=== PATIENT | male | born 1970 | race Caucasian/White ===

== ENCOUNTER 2019-08-15 03:35 | Emergency (ER) | payer MEDICAID, MEDICARE, OTHER ==
--- NOTE | 2019-08-15 03:58 | ED.PDOC ---
History of Present Illness - General Time Seen by Provider: 08/15/19 03:41 - History of Present Illness Initial Comments: 49 yo M PMH recent code x 8 sent from vent facility after trach placed at [facility] in June for malfuntioning tracheostomy bulb. Pt. in NAD limited participation in ROS. Denies fever chills nausea vomiting diarrhea chest pain sob no diaphoresis. No changes in bowel or bladder. Offers no complaints today. Review of Systems - Review of Systems Constitutional: States: see HPI EENTM: States: see HPI Respiratory: States: see HPI Gastrointestinal/Abdominal: States: see HPI Genitourinary: States: see HPI Musculoskeletal: States: see HPI Skin: States: see HPI Neurological: States: see HPI Endocrine: States: see HPI Hematologic/Lymphatic: States: see HPI All other Systems: No Change from Baseline Family Medical History - Family History Mother Family History: Unknown Living Status: Unknown Physical Exam - Physical Exam General Appearance: No apparent distress Eye Exam: bilateral normal ENT Exam: other - Tracheostomy in place still appears recently done Neck: supple Respiratory: decreased breath sounds, other - limited exam Cardiovascular/Chest: regular rate, rhythm Gastrointestinal/Abdominal: non tender Extremity: normal range of motion Neurologic: no motor/sensory deficits Skin Exam: normal color Progress - Progress Progress: 08/15/19 04:00 A/P-Tracheostomy Equipment Malfunction 1.MDM-tracheostomy site appears too new for safe manipulation, concern exists for loosing tract and compromising airway. Will transfer to [facility] where tracheostomy was placed for safe intervention/manipulation of equipment. Transfer Departure - Departure Clinical Impression: Tracheostomy complication Qualifiers: Tracheostomy complication: unspecified Qualified Code(s): J95.00 - Unspecified tracheostomy complication Time of Disposition: 04:21 Disposition: Transfer to Hospital Condition: Good Instructions: Tracheotomy (DC), How to Care for a Tracheostomy
[2019-08-15 04:13] VITALS: TEMP 98.5; O2SAT 100
[2019-08-15 06:42] VITALS: BP 146/79
== END 2019-08-15 06:25 | disposition short-term general hospital (02) ==
LOC: ER 03:35
DX: J95.00 Unspecified tracheostomy complication (principal)
CPT/HCPCS: 94002; J2060

== ENCOUNTER 2019-08-20 01:47 | Emergency (ER) | payer MEDICAID, MEDICARE, OTHER ==
--- NOTE | 2019-08-20 02:36 | ED.PDOC ---
History of Present Illness - General Chief Complaint: General Stated Complaint: redness around trach site Time Seen by Provider: 08/20/19 01:49 Source: RN notes reviewed, Vital Signs reviewed, EMS notes reviewed, EMS, long term records Exam Limitations: physical impairment, other - Pt nonerbal - History of Present Illness Initial Comments: Pt is a 49 yo male with chronic respiratory failure with trach, ventilator dependant, who was sent [place]. Per [place] staff, pt has been pulling at trach, G tube and PICC line and sent to make sure none are dislodged. [place] staff also repo rts that there is erythematous area around skin of trach site. States he was sent here last week for trach problem and was exchanged in ED. Pt unable to given further history. Allergies/Adverse Reactions: Allergies NO KNOWN ALLERGY Allergy (Verified 08/20/19 02:20) Home Medications: Ambulatory Orders Cefepime HCl [Cefepime] 2 gm IV 08/20/19 Magnesium Oxide [Hm Magnesium] 400 mg PO 08/20/19 RX: Doxazosin Mesylate 4 mg PO 08/20/19 RX: Metoprolol Tartrate 50 mg PO 08/20/19 RX: Pravastatin Sodium 80 mg PO 08/20/19 RX: Triamcinolone 0.1% Oint [Kenalog 0.1% Ointment] 1 applic TOP TID #1 tube 08/20/19 Review of Systems - Review of Systems Unable to Obtain Due To: other - Pt nonverbal. Unable to obtain Past Medical History (General) - Patient Medical History Hx Seizures: Yes Hx Asthma: No Hx Cardiac Disorders: Yes Hx Congestive Heart Failure: Yes Hx Hypertension: Yes Hx Diabetes: Yes - NIDDM Hx Gastroesophageal Reflux: No Family Medical History - Family History Mother Family History: Unknown Living Status: Unknown Physical Exam - Physical Exam General Appearance: Alert, No apparent distress, Obese, Other - Nonverbal Eye Exam: bilateral normal - PERRL Ears, Nose, Throat: normal pharynx Neck: non-tender, supple, other - Tracheostomy in place. There is mild dry, erythematous skin around trach Respiratory: chest non-tender, lungs clear, normal breath sounds, no respiratory distress, no accessory muscle use, other Cardiovascular/Chest: normal peripheral pulses, regular rate, rhythm, no murmur Gastrointestinal/Abdominal: normal bowel sounds, non tender, soft, other - G tube in place in epigastric area Back Exam: normal inspection, no CVA tenderness, no vertebral tenderness Extremity: non-tender, other - No deformity. Peripheral line in place and dressed with Kerlex to right upper arm Neurologic: alert, other - Tracks with eyes. Makes purposeful movements to pull at trach with BUE. Nonverbal Progress - Progress Progress: 08/20/19 02:40 Galen Patel #[id number] 08/20/19 02:54 Pt sent from [place] to evaluate trach, PICC and G tube postion. CXR and Abd with gastrograffin performed. Trach in place, PICC terminates in right axilla and flushes easily, and xray for G tube confirmation shows contrast in good position. Pt does continue to pull at trach and will need frequent re education and constant monitoring. There is very mild erythema to skin around trach site. Will treat with topical steroid and f/u with PCP in 1-2 days for recheck. SRP given. 08/20/19 02:55 Barrier cream applied to skin surrounding trach after area cleansed and dried. 08/20/19 04:07 - EKG/XRAY/CT XRAY: abdomen Xray Comments: with gastrograffing shows G tube in good position Departure - Departure Clinical Impression: Tracheostomy complication, unspecified, Chronic respiratory failure Time of Disposition: 02:59 Disposition: Discharge to SNF Condition: Fair Departure Forms: ED Discharge - Pt. Copy, Patient Portal Self Enrollment Instructions: How to Care for a Tracheostomy, Tracheotomy (DC) Referrals: JUAN MEZA [Primary Care Provider] - 1-2 Days Prescriptions: RX: Triamcinolone 0.1% Oint [Kenalog 0.1% Ointment] 1 applic TOP TID #1 tube Home Medications: Ambulatory Orders Cefepime HCl [Cefepime] 2 gm IV 08/20/19 Magnesium Oxide [Hm Magnesium] 400 mg PO 08/20/19 RX: Doxazosin Mesylate 4 mg PO 08/20/19 RX: Metoprolol Tartrate 50 mg PO 08/20/19 RX: Pravastatin Sodium 80 mg PO 08/20/19 RX: Triamcinolone 0.1% Oint [Kenalog 0.1% Ointment] 1 applic TOP TID #1 tube 08/20/19
--- NOTE | 2019-08-20 02:49 | RAD ---
CLINICAL HISTORY: G tube confirmation COMPARISON: None. TECHNIQUE: XR ABDOMEN 1 VIEW (KUB) 08/20/2019 1:53 AM CDT FINDINGS: Bowel gas pattern is nonspecific. There are no abnormal radiopaque foreign bodies or abnormal calcifications. Osseous structures are grossly unremarkable. There is intraluminal contrast within the stomach following NG tube injection. There is trace amount of contrast into duodenum. IMPRESSION: Intraluminal position of G-tube. Electronically signed by: Raffaele Walters MD 08/20/2019 2:47 AM CDT
--- NOTE | 2019-08-20 02:50 | RAD ---
EXAM: AP CHEST RADIOGRAPH CLINICAL INDICATION: Evaluate lines and tubes. COMPARISON: No comparisons are available. FINDINGS: Patient has been intubated with endotracheal tube tip 5.5 cm above the gonzalo. Right PICC central line tip is in the right axilla. Panchamber cardiac enlargement. Suspect mild pulmonary congestion. No pleural effusions. No pneumothorax, pneumomediastinum or free peritoneal gas. No hilar or mediastinal lymphadenopathy. No mediastinal widening. Bones are intact on this single view. IMPRESSION: 1. NG tube tip is 5.5 cm above the gonzalo. 2. Right PICC central line tip is in the right axilla. 3. Panchamber cardiac enlargement without mild pulmonary congestion. No focal pneumonia or pneumothorax on this single view. Electronically signed by: Jack Obregon MD 08/20/2019 2:48 AM CDT
[2019-08-20 03:18] VITALS: BP 145/83; TEMP 98.4; O2SAT 99
== END 2019-08-20 03:26 ==
LOC: ER 01:47
DX: J95.00 Unspecified tracheostomy complication (principal); E66.9 Obesity, unspecified; R56.9 Unspecified convulsions; I51.9 Heart disease, unspecified; I50.9 Heart failure, unspecified; I11.0 Hypertensive heart disease with heart failure; E11.9 Type 2 diabetes mellitus without complications; Y83.9 Surgical procedure, unspecified as the cause of abnormal reaction of the patient, or of later complication, without mention of misadventure at the time of the procedure; Z99.11 Dependence on respirator [ventilator] status; Z79.899 Other long term (current) drug therapy

== ENCOUNTER 2019-09-20 06:23 | Emergency (ER) | payer OTHER ==
[2019-09-20] MEDS ORDERED: IPRATROPIUM/ALBUTEROL 3 ML VIAL NEB ONE (06:29)
--- NOTE | 2019-09-20 06:53 | RAD ---
EXAM: Single view chest. INDICATION: Bradycardia. COMPARISON: Chest x-ray: 08/20/2019. FINDINGS: Cardiac silhouette: Enlarged Kiarra: Unremarkable. Lobar consolidation: None. Pleural effusion: None. Pneumothorax: None. Other: Tracheostomy tube is in satisfactory position Bones: Unremarkable. Other: None. IMPRESSION: 1. No acute cardiopulmonary process. Electronically signed by: Sd Ramos MD 09/20/2019 6:51 AM CDT
--- NOTE | 2019-09-20 06:59 | ED.PDOC ---
History of Present Illness - General Source: patient Exam Limitations: no limitations - History of Present Illness Initial Comments: The patient is a 49-year-old male being brought in by EMS from the long-term care facility. The patient was found to have a low heart rate this morning in the low 30s. He seemed a little more confused than normal. Blood pressures however have been in the 1 teens to 140s. On the systolic end. No obvious fever. The patient does look pale. The patient had been on a trach collar overnight. The patient has had apparently 4 medications DC'd in the last couple of days. We are unsure what this is in the overnight nurse was unable to give us what that is. We are going to contact them back here in an hour to try and figure out what those are.the patient did have a documented heart rate 62 yesterday evening. Timing/Duration: unsure Severity: severe Improving Factors: nothing Worsening Factors: nothing <Kris Damian - Last Filed: 09/20/19 07:20> <Nas Silva - Last Filed: 09/20/19 07:54> - General Chief Complaint: Cardiovascular Problem Stated Complaint: low heart rate Time Seen by Provider: 09/20/19 06:29 - History of Present Illness Allergies/Adverse Reactions: Allergies NO KNOWN ALLERGY Allergy (Verified 08/20/19 02:20) Home Medications: Ambulatory Orders Cefepime HCl [Cefepime] 2 gm IV 08/20/19 Doxazosin Mesylate 4 mg PO 08/20/19 Magnesium Oxide [Hm Magnesium] 400 mg PO 08/20/19 Metoprolol Tartrate 50 mg PO 08/20/19 Pravastatin Sodium 80 mg PO 08/20/19 Triamcinolone 0.1% Oint [Kenalog 0.1% Ointment] 1 applic TOP TID #1 tube 08/20/19 Review of Systems - Review of Systems Review of Systems: 09/20/19 06:59 the patient does seem a little bit confused. He is able to nod yes and no to most questions appropriately. Review of systems is therefore unreliable in this patient. Constitutional: States: malaise EENTM: States: no symptoms reported Respiratory: States: short of breath - mild Cardiology: States: no symptoms reported Gastrointestinal/Abdominal: States: no symptoms reported Genitourinary: States: no symptoms reported Musculoskeletal: States: no symptoms reported Skin: States: no symptoms reported Neurological: States: see HPI Endocrine: States: no symptoms reported All other Systems: No Change from Baseline <RickieKris L - Last Filed: 09/20/19 07:20> Past Medical History (General) - Patient Medical History Hx Seizures: Yes Hx Asthma: No Hx of COPD: Yes - vent dependent Hx Cardiac Disorders: Yes Hx Congestive Heart Failure: Yes Hx Hypertension: Yes Hx Diabetes: Yes - NIDDM Hx Gastroesophageal Reflux: No Hx Renal Disease: Yes Surgical History: other - Vaccination History Hx Tetanus, Diphtheria Vaccination: No Hx Influenza Vaccination: No Hx Pneumococcal Vaccination: No Immunizations Up to Date: No - Activities of Daily Living [facility]isted [facility] (if applicable[facility]:: [facility] <Kris Damian - Last Filed: 09/20/19 07:20> Family Medical History - Family History Mother Family History: Unknown Living Status: Unknown <Kris Damian - Last Filed: 09/20/19 07:20> Physical Exam - Physical Exam General Appearance: Alert, Other - he does appear mildlyconfused. He does appe ar pale. He is obese and on a ventilator. Eye Exam: bilateral normal Ears, Nose, Throat: hearing grossly normal, normal pharynx Neck: other - tracheostomy is in place. Respiratory: no respiratory distress, no accessory muscle use, other - he does have scattered rhonchi. Decreased breath sounds at the bases. Mild rales posteriorly. Cardiovascular/Chest: normal peripheral pulses, bradycardia - regular, no defined P waves., other - +1 edema Peripheral Pulses: radial,right: 2+, radial,left: 2+ Gastrointestinal/Abdominal: soft, other - obese Extremity: normal range of motion, normal capillary refill, pedal edema - +1 Neurologic: law clerk II-XII nml as tested, alert, other - he does appear drowsy and a little disoriented. He does have a difficult time communicating primarily due to the trach. Skin Exam: pallor Comments: Vital Signs - 24 hr 09/20/19 09/20/19 06:42 06:46 Temperature 97.1 F L Pulse Rate 33 L Pulse Rate [ 48 L 38 L Left Apical] Respiratory 22 20 Rate Blood Pressure 127/71 [Left Arm] O2 Sat by Pulse 100 Oximetry <Rickie,Kris L - Last Filed: 09/20/19 07:20> Progress - Progress Progress: 09/20/19 07:05 the patient is a 49-year-old male presenting to the emergency room after being sent up by the custodial for significant bradycardia. Heart rates are in the low 30s. It does appear to be a junctional escape rhythm at this point. Blood pressures are actually adequate for perfusion. He does appear a little bit confused, but I'm uncertain what his baseline mentality is. No obvious new focal neurological deficits. this occurred while the patient was on a trach collar overnight. it is possible he may have become hypercapnic overnight on the trach collar causing some arrhythmia. By the time we completed the ABG here however, the ABG looked fairly normal. The patient had been on metoprolol in the past but I do not see it currently on his medication list. 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 He does have a mild leukocytosis but I do not have previous labs to compare to. I do not have his cardiac history either. pads will be in place in case pacing becomes necessary. For now, it appears he is perfusing fairly well. awaiting laboratory studies otherwise. If we fail to find any correctable issue as the trigger for the bradycardia, then he will need to go see cardiology for further evaluation and intervention. The patient will be followed by the oncoming ER physician. 09/20/19 07:06 - Results/Orders Results/Orders: Laboratory Tests 09/20/19 06:47 WBC 13.4 H RBC 3.44 L Hgb 10.2 L Hct 32.2 L MCV 93.6 MCH 29.5 MCHC 31.6 L RDW 16.7 H Plt Count 105 L MPV 10.0 Absolute Neuts (auto) 10.40 H Absolute Lymphs (auto) 1.60 Absolute Monos (auto) 1.00 H Absolute Eos (auto) 0.20 Absolute Basos (auto) 0.10 Neutrophils % 78.1 H Lymphocytes % 12.3 L Monocytes % 7.3 Eosinophils % 1.8 Basophils % 0.5 chest x-ray essentially appears clear. Tracheostomy is in place. No pneumothorax or pneumonia. EKG shows what appears to be a junctional rhythm of [address] segment elevation or depression indicate acute ischemia. Normal QT interval. Slow R-wave progression in anterior leads. <Kris Damian - Last Filed: 09/20/19 07:20> Departure <Kris Damian - Last Filed: 09/20/19 07:20> <Nas Silva - Last Filed: 09/20/19 07:54> - Departure Clinical Impression: Junctional bradycardia, Ventilator dependent Disposition: Transfer to Hospital Condition: Fair Departure Forms: ED Discharge - Pt. Copy, Patient Portal Self Enrollment Instructions: DI for Chest Pain Referrals: JUAN MEZA [Primary Care Provider] - 1-2 Weeks Home Medications: Ambulatory Orders Cefepime HCl [Cefepime] 2 gm IV 08/20/19 Doxazosin Mesylate 4 mg PO 08/20/19 Magnesium Oxide [Hm Magnesium] 400 mg PO 08/20/19 Metoprolol Tartrate 50 mg PO 08/20/19 Pravastatin Sodium 80 mg PO 08/20/19 Triamcinolone 0.1% Oint [Kenalog 0.1% Ointment] 1 applic TOP TID #1 tube 08/20/19 Transfer to Outside Facility - Transfer Information Decision to Transfer Date: 09/20/19 Decision to Transfer Time: 07:54 Reason for Transfer: specialized care not available Accepting Provider:: Dr. Gore Accepting Facility: [facility] <Nas Silva - Last Filed: 09/20/19 07:54> Addendum entered and electronically signed by Kris Damian MD 09/20/19 07:21: Departure - Departure Clinical Impression: Junctional bradycardia, Ventilator dependent Disposition: Transfer to Hospital Condition: Fair Departure Forms: ED Discharge - Pt. Copy, Patient Portal Self Enrollment Instructions: DI for Chest Pain Referrals: JUAN MEZA [Primary Care Provider] - 1-2 Weeks Home Medications: Ambulatory Orders Cefepime HCl [Cefepime] 2 gm IV 08/20/19 Doxazosin Mesylate 4 mg PO 08/20/19 Magnesium Oxide [Hm Magnesium] 400 mg PO 08/20/19 Metoprolol Tartrate 50 mg PO 08/20/19 Pravastatin Sodium 80 mg PO 08/20/19 Triamcinolone 0.1% Oint [Kenalog 0.1% Ointment] 1 applic TOP TID #1 tube 08/20/19 ED Addendum - ED Addendum Addendum: 09/20/19 06:29 Telemetry .CONTINUOUS 09/20/19 06:30 EKG Assessment ONCE EKG STAT 09/20/19 06:47 LACTIC ACID Stat MAGNESIUM Stat THYROID STIMULATING HORMONE Stat PARTIAL THROMBOPLASTIN TIME Stat PROTHROMBIN TIME Stat 09/20/19 06:56 VALPROIC ACID (DEPAKENE) Stat 09/20/19 07:15 BOLUS Sodium Chloride 0.9% 1000ML [Ns 1000 ml] 1,000 ml IVS ONCE 09/21/19 06:30 EKG STAT Laboratory Results - last 24 hr 09/20/19 09/20/19 09/20/19 06:47 06:47 06:47 WBC 13.4 H RBC 3.44 L Hgb 10.2 L Hct 32.2 L MCV 93.6 MCH 29.5 MCHC 31.6 L RDW 16.7 H Plt Count 105 L MPV 10.0 Absolute Neuts (auto) 10.40 H Absolute Lymphs (auto) 1.60 Absolute Monos (auto) 1.00 H Absolute Eos (auto) 0.20 Absolute Basos (auto) 0.10 Neutrophils % 78.1 H Lymphocytes % 12.3 L Monocytes % 7.3 Eosinophils % 1.8 Basophils % 0.5 pCO2 pO2 HCO3 ABG pH ABG O2 Saturation ABG Base Excess ABG Deoxyhemoglobin Oxyhemoglobin % Carboxyhemoglobin % Methemoglobin % Sat Calc Total Hemoglobin Sodium 133 L Potassium 6.7 H* Chloride 101 Carbon Dioxide 19 L Anion Gap 19.7 H BUN 66 H Creatinine 1.74 H BUN/Creatinine Ratio 37.9 H Random Glucose 127 H Serum Osmolality 287.0 Calcium 9.5 Magnesium 4.0 H Total Bilirubin 0.4 AST 22 ALT 26 Alkaline Phosphatase 93 Creatine Kinase 46 CK-MB (CK-2) 8.8 H* CK-MB (CK-2) % Not Reportable Troponin I < 0.02 B-Natriuretic Peptide 109.0 H Serum Total Protein 7.3 Albumin 2.9 L Globulin 4.4 H Albumin/Globulin Ratio 0.7 L 09/20/19 07:07 WBC RBC Hgb Hct MCV MCH MCHC RDW Plt Count MPV Absolute Neuts (auto) Absolute Lymphs (auto) Absolute Monos (auto) Absolute Eos (auto) Absolute Basos (auto) Neutrophils % Lymphocytes % Monocytes % Eosinophils % Basophils % pCO2 32 L pO2 159 H* HCO3 16.7 ABG pH 7.340 L ABG O2 Saturation 100.2 H ABG Base Excess -7.8 ABG Deoxyhemoglobin -0.2 L Oxyhemoglobin % 98.2 H Carboxyhemoglobin % 0.4 L Methemoglobin % Sat 1.6 H Calc Total Hemoglobin 9.1 L Sodium Potassium Chloride Carbon Dioxide Anion Gap BUN Creatinine BUN/Creatinine Ratio Random Glucose Serum Osmolality Calcium Magnesium Total Bilirubin AST ALT Alkaline Phosphatase Creatine Kinase CK-MB (CK-2) CK-MB (CK-2) % Troponin I B-Natriuretic Peptide Serum Total Protein Albumin Globulin Albumin/Globulin Ratio the patient has significant hyperkalemia. He is receiving saline, Lasix, Kayexalate, calcium chloride, sodium bicarbonate. Additionally pads are in placed and he has been given 1 dose of 0.5 mg of atropine. He is still in a junctional bradycardia but heart rate has come up to the low 40s. Blood pressure still adequate. Oncoming physician is accepting care. Addendum entered and electronically signed by Nas Silva MD 09/20/19 10:18: Departure - Departure Clinical Impression: Junctional bradycardia, Ventilator dependent Disposition: Transfer to Hospital Condition: Fair Departure Forms: ED Discharge - Pt. Copy, Patient Portal Self Enrollment Instructions: DI for Chest Pain Referrals: JUAN MEZA [Primary Care Provider] - 1-2 Weeks Home Medications: Ambulatory Orders Cefepime HCl [Cefepime] 2 gm IV 08/20/19 Doxazosin Mesylate 4 mg PO 08/20/19 Magnesium Oxide [Hm Magnesium] 400 mg PO 08/20/19 Metoprolol Tartrate 50 mg PO 08/20/19 Pravastatin Sodium 80 mg PO 08/20/19 Triamcinolone 0.1% Oint [Kenalog 0.1% Ointment] 1 applic TOP TID #1 tube 08/20/19 ED Addendum - ED Addendum Addendum: Received hand-off from Dr. Damian at shift change. Pt is a 49 yo male with PMH of HTN, CHF, DM2, seizure disorder, COPD, vent/trach dependent, g-tube dependent bib EMS from [place] for low HR noted this morning to 30s-40s. Last known normal HR was yesterday evening. Pt without acute complaints. BP remained stable >100s systolic. Noted in junctional bradycardia rhythm here on arrival. Appears to be new issue for the patient. Per [facility] his Norvasc, doxazosin, and metoprolol were just discontinued a few days ago due to issues with low BP. He has spironolactone and acetazolamide as well as other DM2, HLD, and seizure meds on his active list. Here he was noted to have K 6.7, WBC 13,000 with left shift but no bands, Cr 1.7, Mg 4.0. He was given CaCl, insulin, Lasix, bicarb, and kayexalate for hyperkalemia and atropine 0.5 mg IV x1 for bradycardia by Dr. Damian. His HR increased to 60s, still appearing to be junctional rhythm, otherwise remained stable. I spoke with Dr. Gore at [facility] who accepted for transfer for hyperkalemia and junctional bradycardia. Transferred via ground EMS in stable condition. Nas Silva MD Billing #[id number]
[2019-09-20] MEDS ORDERED: ACETYLCYSTEIN 20 % 6,000 MG/30 ML VIAL NEB ONE ×2 (07:02→08:00)
[2019-09-20] MEDS ORDERED: ATROPINE SULFATE 0.5 MG/5 ML SYRINGE IV ONE (07:05)
[2019-09-20] MEDS ORDERED: SOD POLYSTYRENE SULFONATE 15 GM/60 ML BTTL GT ONE (07:15)
[2019-09-20] MEDS ORDERED: SODIUM CHLORIDE 0.9% 1000ML 1,000 ML IVS ONE (07:15)
[2019-09-20] MEDS ORDERED: SODIUM BICARBONATE VIAL 50 MEQ/50 ML VIAL IV ONE (07:15)
[2019-09-20] MEDS ORDERED: CALCIUM CHLORIDE INJ 100 MG/ML SYG IV ONE (07:15)
[2019-09-20] MEDS ORDERED: FUROSEMIDE INJ 40 MG/4 ML VIAL IV ONE (07:15)
[2019-09-20] MEDS ORDERED: DEXTROSE 50% 25 GM/50 ML SYG IV ONE (07:22)
[2019-09-20] MEDS ORDERED: INSULIN, REG.(HUMAN) 100 U/ML VIAL IV ONE (07:23)
[2019-09-20 17:44] VITALS: BP 162/94; TEMP 97.6; O2SAT 97
== END 2019-09-20 08:55 | disposition short-term general hospital (02) ==
LOC: ER 06:23
DX: R00.1 Bradycardia, unspecified (principal); Z99.11 Dependence on respirator [ventilator] status; Z93.0 Tracheostomy status; J44.9 Chronic obstructive pulmonary disease, unspecified; I11.0 Hypertensive heart disease with heart failure; I50.9 Heart failure, unspecified; E11.9 Type 2 diabetes mellitus without complications; R41.0 Disorientation, unspecified; E87.5 Hyperkalemia; G40.909 Epilepsy, unspecified, not intractable, without status epilepticus; Z93.1 Gastrostomy status
CPT/HCPCS: 36415; 36600; 71045; 80053; 80164; 82550; 82553; 82803; 82805; 83605; 83735; 83880; 84443; 84484; 85025; 85610; 85730; 93005; 94002; 94640; J1940; J7620; J7799

== ENCOUNTER 2019-11-07 01:21 | Inpatient (IN) | payer OTHER ==
--- NOTE | 2019-11-07 01:52 | ED.PDOC ---
History of Present Illness - General Chief Complaint: Neuro Symptoms/Deficits Stated Complaint: seizure like activity Time Seen by Provider: 11/07/19 01:34 Source: patient, RN notes reviewed, Vital Signs reviewed, EMS notes reviewed, RN/MD - nursing staff at her [facility] - History of Present Illness Initial Comments: patient presents via EMS from the long term. At the long term patient was unconscious and was with oxygen saturation less than 50%. Per the nursing is at the long term patient was out of it.patient has a history of seizure disorder. Had a G button removed yesterday. Per nurse's at the long term the patient has not received any pain medicine or anxiety medicine today.patient states he has a mild headache. He believes he is an employee. Patient has some significant mental retardation issues per his medical history. Unable to obtain a good history of present illness and review of systems because of patient's mental retardation. Timing/Duration: 1/2 hour Severity: moderate Improving Factors: nothing Worsening Factors: nothing Associated Symptoms: confusion, other - headache Allergies/Adverse Reactions: Allergies NO KNOWN ALLERGY Allergy (Verified 08/20/19 02:20) Home Medications: Ambulatory Orders Doxazosin Mesylate 4 mg PO DAILY 08/20/19 Pravastatin Sodium 80 mg PO DAILY 08/20/19 Acetaminophen [Pain Relief] 650 mg PO DAILY 11/07/19 Amlodipine Besylate 10 mg PO DAILY 11/07/19 Aspirin [Aspirin Childrens] 81 mg PO DAILY 11/07/19 Bumetanide 1 mg PO DAILY 11/07/19 Calcitriol 0.25 mcg PO DAILY 11/07/19 Esomeprazole Magnesium [Nexium] 40 mg PO DAILY 11/07/19 Lactobacillus [Acidophilus Lactobacilli] 1 cap PO DAILY 11/07/19 Levetiracetam 1,000 mg PO DAILY 11/07/19 Nystatin (Topical) [Nystop] 1 TOP DAILY 11/07/19 Polyethylene Glycol 3350 [Miralax] 17 gm PO DAILY 11/07/19 SILVER SULFADIAZINE 1 % 25gm [Silvadene Cream 25gm] 0 gm TOP DAILY 11/07/19 Valproic Acid Syrup [Depakene Syrup] 250 mg PO DAILY 11/07/19 Review of Systems - Review of Systems Constitutional: States: no symptoms reported, see HPI EENTM: States: no symptoms reported, see HPI Respiratory: States: no symptoms reported Cardiology: States: no symptoms reported Gastrointestinal/Abdominal: States: no symptoms reported Genitourinary: States: no symptoms reported Musculoskeletal: States: no symptoms reported Skin: States: no symptoms reported Neurological: States: see HPI, headache Endocrine: States: no symptoms reported Hematologic/Lymphatic: States: no symptoms reported Unable to Obtain Due To: other - mental retardation All other Systems: Reviewed and Negative Past Medical History (General) - Patient Medical History Hx Seizures: Yes Hx Asthma: No Hx of COPD: Yes - vent dependent Hx Cardiac Disorders: Yes Hx Congestive Heart Failure: Yes Hx Hypertension: Yes Hx Diabetes: Yes - NIDDM Hx Gastroesophageal Reflux: No Hx Renal Disease: Yes - Vaccination History Hx Tetanus, Diphtheria Vaccination: No Hx Influenza Vaccination: No Hx Pneumococcal Vaccination: No Family Medical History - Family History Mother Family History: Unknown Living Status: Unknown Physical Exam - Physical Exam General Appearance: Comfortable, Obese, Well Developed, Well Hydrated, Well Nourished Eye Exam: bilateral normal ENT Exam: normal ENT inspection, hearing grossly normal, pharynx normal Neck: non-tender, full range of motion, supple, normal inspection Respiratory: chest non-tender, no accessory muscle use, rhonchi, other - Oxygen saturation approximately 82% on room air which normalizes to 98% on 2 L nasal cannula. 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 11/07/19 02:51 Patient discussed with the hospitalist on-call and agreement to admit the patient for IV antibiotics and IV Depakote. Trell Rodriguez M.D. #[id number] - Results/Orders Results/Orders: 11/07/19 02:00 Urine Culture Stat 11/07/19 02:32 BLOOD CULTURE Stat 11/07/19 02:33 Valproate Sodium Inj [Depacon] 500 mg Sodium Chloride 0.9% 100Ml [NS (NACL 0.9%) 100ml] 100 ml IVPB ONCE cefTRIAXone SODIUM [Rocephin] 2 gm Sodium Chl 0.9% 100Ml Mini-Bag [NS 100ml MINI-BAG+] 100 ml IVPB ONCE Laboratory Results - last 24 hr 11/07/19 11/07/19 11/07/19 01:42 01:42 02:00 WBC 12.7 H RBC 3.44 L Hgb 9.6 L Hct 30.7 L MCV 89.2 MCH 27.9 MCHC 31.3 L RDW 14.7 H Plt Count 533 H MPV 6.7 L Absolute Neuts (auto) 8.80 H Absolute Lymphs (auto) 2.00 Absolute Monos (auto) 1.00 H Absolute Eos (auto) 0.80 H Absolute Basos (auto) 0.10 Neutrophils % 69.1 Lymphocytes % 15.9 L Monocytes % 7.6 Eosinophils % 6.2 H Basophils % 1.2 Sodium 140 Potassium 3.6 Chloride 102 Carbon Dioxide 28 Anion Gap 13.6 BUN 22 H Creatinine 1.18 BUN/Creatinine Ratio 18.6 Random Glucose 178 H Serum Osmolality 287.1 Calcium 8.9 Total Bilirubin 0.4 AST 17 ALT 15 Alkaline Phosphatase 67 Serum Total Protein 7.0 Albumin 2.7 L Globulin 4.3 H Albumin/Globulin Ratio 0.6 L Lipase 26 Urine Color Yellow Urine Appearance Cloudy Urine pH 8.0 H Ur Specific [place] 1.020 Urine Protein >=300 H Urine Glucose (UA) Negative Urine Ketones Negative Urine Blood Small H Urine Nitrite Negative Urine Bilirubin Negative Urine Urobilinogen 0.2 Ur Leukocyte Esterase Large H Urine RBC 3-5 H Urine WBC >50 H Ur Epithelial Cells 0 Triple Phos Crystals 1+ Amorphous Sediment 1+ Urine Bacteria 3+ H Valproic Acid < 0.1 L Departure - Departure Clinical Impression: Seizure, Noncompliance with medication regimen Urinary tract infection Qualifiers: Urinary tract infection type: acute cystitis Hematuria presence: without hematuria Qualified Code(s): N30.00 - Acute cystitis without hematuria Disposition: Admit Patient Condition: Good Referrals: JUAN MEZA [Primary Care Provider] - 1-2 Weeks Home Medications: Ambulatory Orders Doxazosin Mesylate 4 mg PO DAILY 08/20/19 Pravastatin Sodium 80 mg PO DAILY 08/20/19 Acetaminophen [Pain Relief] 650 mg PO DAILY 11/07/19 Amlodipine Besylate 10 mg PO DAILY 11/07/19 Aspirin [Aspirin Childrens] 81 mg PO DAILY 11/07/19 Bumetanide 1 mg PO DAILY 11/07/19 Calcitriol 0.25 mcg PO DAILY 11/07/19 Esomeprazole Magnesium [Nexium] 40 mg PO DAILY 11/07/19 Lactobacillus [Acidophilus Lactobacilli] 1 cap PO DAILY 11/07/19 Levetiracetam 1,000 mg PO DAILY 11/07/19 Nystatin (Topical) [Nystop] 1 TOP DAILY 11/07/19 Polyethylene Glycol 3350 [Miralax] 17 gm PO DAILY 11/07/19 SILVER SULFADIAZINE 1 % 25gm [Silvadene Cream 25gm] 0 gm TOP DAILY 11/07/19 Valproic Acid Syrup [Depakene Syrup] 250 mg PO DAILY 11/07/19 Decision To Admit - Decistion To Admit Decision to Admit Reason: Admit from ER Decision to Admit Date: 11/07/19 Decision to Admit Time: 02:42
[2019-11-07] MEDS ORDERED: cefTRIAXone SODIUM 2 GM in SODIUM CHL 0.9% 100ML MINI-BAG 100 ML IVPB ONE (02:33)
[2019-11-07] MEDS ORDERED: SODIUM CHLORIDE 0.9% IVPB ONE (02:33)
[2019-11-07] MEDS ORDERED: VALPROATE SODIUM IVPB ONE ×2 (02:33→02:41)
[2019-11-07] MEDS ORDERED: SODIUM CHL 0.9% 100ML MINI-BAG 100 ML IVPB ONE (02:42)
[2019-11-07] MEDS ORDERED: SODIUM CHLORIDE 0.9% 100ML 100 ML IVPB ONE (02:42)
--- NOTE | 2019-11-07 04:35 | HP ---
SUPERVISING PHYSICIAN: Say Damian MD CHIEF COMPLAINT: Altered mental status, questionable seizures. HISTORY OF PRESENT ILLNESS: This is a 49-year-old male patient who resides at [facility]. He has recently been on a ventilator and had a feeding tube. He also has mental retardation and it is difficult to get a history from him. He has been off the ventilator for an unknown amount of time and his G- tube was removed in the last several days. Yesterday at the correction, he had an oxygen saturation reported to be less than 50%. He was "out of it." He had received no pain medications or anxiety medications yesterday and due to his mental status changes and his history of seizure disorder, he was sent to the Emergency Room. In the Emergency Room, his vital signs were temperature 97.8, heart rate 93, blood pressure 120/72, respiratory rate 24, O2 saturation 93% on 2 liters nasal cannula. Lab was obtained and WBC was 12.7, hemoglobin 9.6, hematocrit 30.7. His chemistries were basically within normal limits with a slightly elevated BUN 22. Glucose 185. Albumin slightly low at 2.7. He did have a significant urinary tract infection with urine pH of 8, urine protein of greater than 300, a small amount of urine blood, a large amount of urine leukocyte esterase, 3 to 5 urine RBCs, greater than 50 urine WBCs and 3+ urine bacteria. He is on Depakote and Keppra and his valproic acid was less than 0.1. His Keppra level was not done. Urine culture is pending. Blood cultures are pending. He was given 500 mg of Depakote in the Emergency Room as well as some fluids. He was also started on ceftriaxone and the patient was placed in observation in the hospital. PAST MEDICAL HISTORY: 1. Seizures. 2. Chronic obstructive pulmonary disease. 3. Cardiac disease. 4. Congestive heart failure of unknown etiology with no echocardiogram to review. He is on Lasix. 5. Hypertension. 6. Type 2 diabetes mellitus on insulin therapy. PAST SURGICAL HISTORY: Unknown. MEDICATIONS: Per the EMR and awaiting verification. ALLERGIES: NO KNOWN DRUG ALLERGIES. SOCIAL HISTORY: He smokes about one pack of cigarettes daily. It is unknown whether he drank alcoholic beverages prior to coming to the correction. He does live in [facility]. REVIEW OF SYSTEMS: Unable to obtain due to the patient's mental status. PHYSICAL EXAMINATION: VITAL SIGNS: Temperature 99.3. Heart rate 85. Blood pressure 129/76. Respiratory rate 22. O2 saturation 91% on room air. GENERAL: This is an obese 49-year-old male patient who is sitting up in his hospital bed. He is in no acute distress. HEENT: Normocephalic, atraumatic. Pupils are equal and reactive. Oropharynx is clear. NECK: Supple without mass. RESPIRATORY: Diminished at the bases, but otherwise essentially clear to auscultation. CHEST: There is equal rise and fall of the chest with inspiration and expiration. CARDIOVASCULAR: Regular rate and rhythm. GASTROINTESTINAL: Abdomen is soft, nondistended, nontender. Bowel sounds are positive. EXTREMITIES: No cyanosis, clubbing or edema. NEUROLOGIC: Awake and alert. He is oriented to person only. Cranial nerves II- XII are grossly intact as tested. SKIN: Warm and dry. LABORATORY: Labs and films are as per history of present illness. IMPRESSION: 1. Altered mental status with history of seizure disorder. There has been no evidence of seizure since coming to the hospital. 2. Urinary tract infection with cultures pending. 3. Seizure disorder on Keppra and Depakote. His Keppra level was not done and he was given 500mg of Keppra in ER. He did have a subtherapeutic Depakote level and only receives 250mg at bedtime. 4. Chronic obstructive pulmonary disease with no signs or symptoms of an exacerbation. He was recently ventilator dependent. 5. Hypertension. 6. Diabetes mellitus, type 2, presently on insulin therapy. 7. Congestive heart failure of unknown etiology. He is on Lasix and a calcium channel yasmin. PLAN: We will place the patient in observation. He will have neuro checks and we will watch for seizure activity. His home medications will be restarted as soon as they are verified. I have also ordered a Keppra level this morning and will repeat Depakote level tomorrow with his other labs. He will have blood sugar checks a.c. and h.s. with sliding scale insulin. He will be on aggressive pulmonary hygiene including nebulizer treatments. He is on Lovenox for DVT prophylaxis. At this point, I do not know his neurologist or who manages his seizure medications, but most likely we will not adjust any of those medications for now unless his Keppra is low. He will need close followup with his neurologist and his primary care physician. We will monitor the patient closely and follow as needed. #[id number] [facility]ENTERJhonny
[2019-11-07] MEDS ORDERED: ONDANSETRON INJ 4 MG/2 ML VIAL IV PRN (09:02)
[2019-11-07] MEDS ORDERED: SODIUM CHLORIDE 0.9% (FLUSH) 10 ML SYG IV PRN (09:02)
[2019-11-07] MEDS ORDERED: GLUCAGON INJ 1 MG VIAL SUBCU PRN (09:07)
[2019-11-07] MEDS ORDERED: DEXTROSE 50% 25 GM/50 ML SYG IV PRN (09:07)
[2019-11-07] MEDS ORDERED: ACETAMINOPHEN 325 MG TAB PO PRN (09:16)
[2019-11-07] MEDS: IPRATROPIUM/ALBUTEROL 3 ML VIAL NEB SCH ×4 (09:30→20:26)
[2019-11-07] MEDS ORDERED: DOXAZOSIN MESYLATE 2 MG TAB ONE (09:32)
[2019-11-07] MEDS ORDERED: PRAVASTATIN SODIUM 20 MG TAB ONE (09:33)
[2019-11-07] MEDS ORDERED: BUMETANIDE TAB 2 MG TAB ONE (09:33)
[2019-11-07] MEDS ORDERED: amLODIPine BESYLATE 5 MG TAB ONE (09:33)
[2019-11-07] MEDS ORDERED: levETIRAcetam 250 MG TAB ONE (09:33)
[2019-11-07] MEDS ORDERED: INSULIN DETEMIR 100 UNITS/ML PEN SUBCU ONE (09:34)
[2019-11-07] MEDS ORDERED: LACTOBACILLUS 1 TAB ONE (09:34)
[2019-11-07] MEDS ORDERED: DEXTROSE 10% IVS PRN (09:46)
[2019-11-07] MEDS: CALCITRIOL 0.25 MCG CAP PO SCH (10:02)
[2019-11-07] MEDS: BUMETANIDE TAB 2 MG TAB PO SCH (10:02)
[2019-11-07] MEDS: POLYETHYLENE GLYCOL 3350 17 GM PCKT PO SCH (10:02)
[2019-11-07] MEDS: ASPIRIN (CHEWABLE) 81 MG TAB PO SCH (10:02)
[2019-11-07] MEDS: DOXAZOSIN MESYLATE 2 MG TAB PO SCH (10:02)
[2019-11-07] MEDS: ENOXAPARIN SODIUM 40 MG/0.4 ML SYG SUBCU SCH (10:03)
[2019-11-07] MEDS: LACTOBACILLUS 1 TAB PO SCH (10:03)
[2019-11-07] MEDS: levETIRAcetam 250 MG TAB PO SCH ×2 (10:04→20:37)
[2019-11-07] MEDS: amLODIPine BESYLATE 5 MG TAB PO SCH (10:04)
[2019-11-07] MEDS: PRAVASTATIN SODIUM 20 MG TAB PO SCH (10:04)
[2019-11-07] MEDS: VALPROIC ACID 250MG/5ML 60 ML BTTL PO SCH (10:08)
[2019-11-07] MEDS: INSULIN DETEMIR 100 UNITS/ML PEN SUBCU SCH ×2 (10:09→21:17)
[2019-11-07] MEDS: INSULIN LISPRO 100 UNITS/ML PEN SUBCU SCH ×3 (12:57→21:17)
[2019-11-07] MEDS: IV SET AND CAP CHANGE INJ INJ SCH (19:27)
[2019-11-07] MEDS ORDERED: PANTOPRAZOLE SODIUM IV 40 MG VIAL ONE (19:32)
[2019-11-07] MEDS: SODIUM CHLORIDE 0.9% (FLUSH) 10 ML SYG IV SCH (20:37)
[2019-11-08] MEDS: PANTOPRAZOLE SODIUM IV 40 MG VIAL IV SCH (06:03)
[2019-11-08] MEDS ORDERED: SODIUM CHL 0.9% 50ML MIN-BAG+ 50 ML IVPB ONE (07:07)
[2019-11-08] MEDS ORDERED: cefTRIAXone SODIUM 1 GM VIAL ONE (07:07)
[2019-11-08] MEDS: IPRATROPIUM/ALBUTEROL 3 ML VIAL NEB SCH ×4 (08:25→20:36)
[2019-11-08] MEDS: INSULIN LISPRO 100 UNITS/ML PEN SUBCU SCH ×4 (08:38→20:53)
[2019-11-08] MEDS: VALPROIC ACID 250MG/5ML 60 ML BTTL PO SCH (08:41)
[2019-11-08] MEDS: LACTOBACILLUS 1 TAB PO SCH (08:43)
[2019-11-08] MEDS: CALCITRIOL 0.25 MCG CAP PO SCH (08:43)
[2019-11-08] MEDS: ASPIRIN (CHEWABLE) 81 MG TAB PO SCH (08:43)
[2019-11-08] MEDS: PRAVASTATIN SODIUM 20 MG TAB PO SCH (08:43)
[2019-11-08] MEDS: DOXAZOSIN MESYLATE 2 MG TAB PO SCH (08:43)
[2019-11-08] MEDS: BUMETANIDE TAB 2 MG TAB PO SCH (08:43)
[2019-11-08] MEDS: levETIRAcetam 250 MG TAB PO SCH ×2 (08:43→20:09)
[2019-11-08] MEDS: POLYETHYLENE GLYCOL 3350 17 GM PCKT PO SCH (08:43)
[2019-11-08] MEDS: amLODIPine BESYLATE 5 MG TAB PO SCH (08:44)
[2019-11-08] MEDS: ENOXAPARIN SODIUM 40 MG/0.4 ML SYG SUBCU SCH (08:44)
[2019-11-08] MEDS: cefTRIAXone SODIUM 1 GM in SODIUM CHL 0.9% 50ML MIN-BAG+ 50 ML IVPB SCH (08:46)
[2019-11-08] MEDS: SODIUM CHLORIDE 0.9% (FLUSH) 10 ML SYG IV SCH ×2 (08:46→20:10)
[2019-11-08] MEDS: SULFA/TRIMETH 800/160 (DS) TAB 1 EA TAB PO SCH ×2 (08:46→20:09)
[2019-11-08] MEDS: INSULIN DETEMIR 100 UNITS/ML PEN SUBCU SCH ×2 (08:53→20:54)
--- NOTE | 2019-11-08 11:11 | PN ---
SUPERVISING PHYSICIAN: Say Damian MD DATE: 11/08/19 SUBJECTIVE: The patient is lying in bed. He has no complaints of shortness of breath, nausea, vomiting or chest pain. It is reported by nursing that he does cry out frequently, but most likely he is at his baseline mental status. His urine in his Myrick continues to be very cloudy. He does have a chronic Myrick catheter. OBJECTIVE: VITAL SIGNS: Temperature 98.9. Heart rate 89. Blood pressure 147/79. Respiratory rate 20. O2 saturation 90% on room air. RESPIRATORY: Diminished at the bases, otherwise clear to auscultation. CARDIAC: Regular rate and rhythm. GASTROINTESTINAL: Abdomen is obese, nondistended, nontender. Bowel sounds are positive. He does have a chronic Myrick catheter with very cloudy, murky, dark yellow urine. NEUROLOGIC: Awake, alert and oriented to person only. He does not answer questions appropriately, but is very pleasantly confused. LABORATORY: WBCs 13,300 with hemoglobin 8.8 and hematocrit 27.4. Blood sugars have run between 146 and 199. Electrolytes are basically within normal limits. Valproic acid level is less than 10. His Keppra level is pending. Preliminary blood cultures are pending. Urine culture is pending. All other labs and films have been reviewed via the EMR. ECHOCARDIOGRAM: 1. Normal left ventricular size and systolic function with estimated ejection fraction of 55% to 60%. No obvious regional wall motion abnormalities noted. 2. Borderline left atrial enlargement . 3. Normal right ventricular size and function. 4. Trace mitral and tricuspid valve regurgitation. 5. Small posterior pericardial effusion. ASSESSMENT: 1. Altered mental status with history of seizure disorder. There has been no evidence of seizure since coming to the hospital. 2. Urinary tract infection with cultures pending. 3. Seizure disorder on Keppra and Depakote. His Keppra level was not done and he was given 500mg of Keppra in ER. He did have a subtherapeutic Depakote level and only receives 250mg at bedtime. 4. Chronic obstructive pulmonary disease with no signs or symptoms of an exacerbation. He was recently ventilator dependent. 5. Hypertension. 6. Diabetes mellitus, type 2, presently on insulin therapy. 7. Questionable congestive heart failure. He is on Lasix and a calcium channel yasmin although his ejection fraction is within normal limits per echocardiogram. 8. Anemia, normochromic/normocytic presentation. PLAN: We will continue present supportive care. I have added Bactrim in addition to his ceftriaxone to his antibiotics as his white count has gone up and his urine is still very murky. We will monitor his cultures closely. He does have a chronic Myrick catheter and that has been changed. I will repeat his lab in the morning. Hopefully he can be discharged to [facility] tomorrow. We will continue to monitor the patient closely and follow as needed. [facility][id number] [facility]
[2019-11-08] MEDS ORDERED: SODIUM CHLORIDE 0.9% IVPB ONE (23:09)
[2019-11-08] MEDS ORDERED: VALPROATE SODIUM IVPB ONE ×2 (23:09→23:28)
[2019-11-08] MEDS ORDERED: SODIUM CHLORIDE 0.9% 100ML 100 ML IVPB ONE (23:28)
[2019-11-09] MEDS: PANTOPRAZOLE SODIUM IV 40 MG VIAL IV SCH (06:59)
[2019-11-09] MEDS: INSULIN LISPRO 100 UNITS/ML PEN SUBCU SCH ×4 (07:20→21:32)
[2019-11-09] MEDS ORDERED: SODIUM CHL 0.9% 50ML MIN-BAG+ 50 ML IVPB ONE ×3 (07:28→20:19)
[2019-11-09] MEDS ORDERED: cefTRIAXone SODIUM 1 GM VIAL ONE (07:29)
[2019-11-09] MEDS: IPRATROPIUM/ALBUTEROL 3 ML VIAL NEB SCH ×4 (08:09→20:26)
[2019-11-09] MEDS: ASPIRIN (CHEWABLE) 81 MG TAB PO SCH (08:45)
[2019-11-09] MEDS: DOXAZOSIN MESYLATE 2 MG TAB PO SCH (08:45)
[2019-11-09] MEDS: PRAVASTATIN SODIUM 20 MG TAB PO SCH (08:46)
[2019-11-09] MEDS: CALCITRIOL 0.25 MCG CAP PO SCH (08:46)
[2019-11-09] MEDS: SULFA/TRIMETH 800/160 (DS) TAB 1 EA TAB PO SCH (08:46)
[2019-11-09] MEDS: levETIRAcetam 250 MG TAB PO SCH ×2 (08:46→21:39)
[2019-11-09] MEDS: BUMETANIDE TAB 2 MG TAB PO SCH (08:46)
[2019-11-09] MEDS: POLYETHYLENE GLYCOL 3350 17 GM PCKT PO SCH (08:47)
[2019-11-09] MEDS: ENOXAPARIN SODIUM 40 MG/0.4 ML SYG SUBCU SCH (08:47)
[2019-11-09] MEDS: cefTRIAXone SODIUM 1 GM in SODIUM CHL 0.9% 50ML MIN-BAG+ 50 ML IVPB SCH (08:47)
[2019-11-09] MEDS: amLODIPine BESYLATE 5 MG TAB PO SCH (08:47)
[2019-11-09] MEDS: SODIUM CHLORIDE 0.9% (FLUSH) 10 ML SYG IV SCH ×2 (08:48→21:39)
--- NOTE | 2019-11-09 08:51 | PN ---
SUPERVISING PHYSICIAN: Say Damian MD DATE: SUBJECTIVE: I was called to the hospital at approximately 10:30 PM due to the patient having seizure-like activities. He had received some Ativan about 9 PM. He did have some abdominal breathing and was fairly lethargic but the Emergency Room doctor did not see any seizure-like activity. At the time that I came to the hospital, he answered simple questions but there was not much change from his baseline. OBJECTIVE: VITAL SIGNS: Temperature 98.8. Heart rate 94. Blood pressure 161/76. Respiratory rate went up to the 20s, O2 saturations were down in the 60s. He was placed on a nonrebreather and his saturations came up to the mid 90s. Respiratory rate 20.. RESPIRATORY: Diminished breath sounds throughout. He is somewhat tachypneic at times. CARDIAC: Regular rate and rhythm. NEUROLOGIC: He is awake but somewhat lethargic. He is oriented to person only. ASSESSMENT: 1. Altered mental status with history of seizure disorder. Tonight patient initially had seizure-like activity but resolved without medications. There was no evidence of any post-ictal symptoms. 2. Urinary tract infection with cultures pending. 3. Seizure disorder on Keppra and Depakote. His Keppra level was not done and he was given 500mg of Keppra in ER. He did have a subtherapeutic Depakote level and only receives 250mg at bedtime. 4. Chronic obstructive pulmonary disease with no signs or symptoms of an exacerbation. He was recently ventilator dependent. 5. Hypertension. 6. Diabetes mellitus, type 2, presently on insulin therapy. 7. Questionable congestive heart failure. He is on Lasix and a calcium channel yasmin although his ejection fraction is within normal limits per echocardiogram. 8. Anemia, normochromic/normocytic presentation. PLAN: At this point, we will continue to monitor him. I have given him 500 mg of Depakote as his level is somewhat low. We are still awaiting his Keppra level. Will continue to have neuro checks hourly overnight. I have increased the frequency of his Ativan dosing and will reevaluate him in the morning. He will need to see neuro as soon as possible. We will continue to monitor him closely and follow as needed. Total critical care time was 30 minutes. [facility][id number] [facility]
[2019-11-09] MEDS: INSULIN DETEMIR 100 UNITS/ML PEN SUBCU SCH ×2 (09:03→21:31)
[2019-11-09] MEDS: VALPROIC ACID 250MG/5ML 60 ML BTTL PO SCH ×2 (09:06→21:35)
[2019-11-09] MEDS: LACTOBACILLUS 1 TAB PO SCH (09:16)
--- NOTE | 2019-11-09 11:27 | RAD ---
EXAM DESCRIPTION: Chest,1 View CLINICAL HISTORY: Shortness of breath COMPARISON: Chest radiograph dated September 20, 2019 TECHNIQUE: One-view radiograph of the chest FINDINGS: Cardiac silhouette shows cardiomegaly with borderline central pulmonary vascular congestion. No lizette pulmonary edema. Shallow lung volumes. Subtle linear opacities in the bilateral lower lung zones most likely represent atelectasis. Underlying infiltrate cannot be entirely excluded. Costophrenic angles are sharp. No pneumothorax. No acute osseous abnormality. IMPRESSION: 1. Cardiomegaly with borderline central pulmonary vascular congestion. No lizette pulmonary edema. 2. Shallow lung volumes. Subtle opacities bilateral lower lung zones most likely represent atelectasis. Underlying infiltrate cannot entirely excluded. Electronically signed by: Michael Angel MD 11/09/2019 11:25 AM [facility]
[2019-11-09] MEDS ORDERED: CEFEPIME 2 GM VIAL ONE ×2 (16:00→20:20)
[2019-11-09] MEDS ORDERED: VANCOMYCIN PER PHARMACY INJ SCH (16:00)
[2019-11-09] MEDS: CEFEPIME 2 GM in SODIUM CHL 0.9% 50ML MIN-BAG+ 50 ML IVPB SCH (16:04)
[2019-11-09] MEDS ORDERED: SODIUM CHLORIDE 0.9% 500ML 0 ML ONE (16:30)
[2019-11-09] MEDS ORDERED: VANCOMYCIN HCL INJ 1,000 MG VIAL IVPB ONE ×3 (16:31→20:20)
[2019-11-09] MEDS ORDERED: SODIUM CHLORIDE 0.9% 500ML 500 ML ONE ×2 (16:33→20:20)
[2019-11-09] MEDS: VANCOMYCIN HCL INJ 2,000 MG in SODIUM CHLORIDE 0.9% 500ML 500 ML IVPB SCH (16:44)
--- NOTE | 2019-11-09 20:23 | PN ---
DATE: 11/09/19 SUPERVISING PHYSICIAN: Say Damian M.D. SUBJECTIVE: The patient is lying in bed. He has no complaints of shortness of breath. He does say he is " and going to have a baby." He complains of some mid epigastric pain but with palpation there is no guarding or complaints of pain. I did speak to a nurse at [facility] and she said she believes the patient self extubated about 2 or 3 weeks ago. OBJECTIVE: VITAL SIGNS: Temperature 98, heart rate 84, blood pressure 138/78, respiratory rate 21, O2 saturation is 96% on 2 liters nasal cannula and 98% on BiPAP. RESPIRATORY: Diminished breath sounds throughout. He does get slightly tachypneic at times. He also has some abdominal breathing. CARDIAC: Regular rate and rhythm. GASTROINTESTINAL: Abdomen is soft, nondistended, non-tender. Bowel sounds are positive. There is no guarding or rebound tenderness. NEUROLOGIC: He is awake. He is oriented to person only. LABORATORY: White blood cells are 14,500 with hemoglobin 8.4, hematocrit 26.5. Blood gas last night showed a pCO2 of 58 with pO2 of 240, bicarb 28.5 and pH of 7.25 with an O2 saturation of 98.2. This morning, his pCO2 was 54, pO2 was 124, bicarb 30.3, pH of 7.36 with an O2 saturation of 97.3. Blood sugars have run between 135 and 258. Electrolytes are basically within normal limits but his BUN is slightly elevated at 23 with a creatinine of 1.41. Valproic acid is 24.2 and Depakote level is pending. Preliminary blood cultures show no growth after 48 hours. Urine cultures are pending. Chest x-ray shows bilateral infiltrates and shallow lung volumes. All other labs and films have been reviewed via the EMR. ASSESSMENT: 1. Bilateral lower lobe pneumonia most likely healthcare acquired. He is a patient of [facility] and was recently extubated. His WBCs have worsened in spite of dual antibiotic coverage. 2. Altered mental status with history of seizure disorder. There was questionable seizure activity last night but there has been no evidence since that time. 3. Urinary tract infection with cultures pending. 4. Seizure disorder on Keppra and Depakote. 5. Chronic obstructive pulmonary disease with acute exacerbation. He was recently ventilator dependent. 6. Hypertension. 7. Diabetes mellitus, type 2, on insulin therapy. 8. Questionable history of congestive heart failure. He is on Lasix and a calcium channel yasmin although his ejection fraction is within normal limits per echocardiogram. 9. Anemia, normochromic/normocytic presentation that has worsened. PLAN: We will continue present supportive care. I have discontinued his Ceftriaxone and Bactrim, and will add Cefepime as well as vancomycin. Will continue with aggressive pulmonary hygiene. He will continue on the BiPAP for now. We will continue to watch his cultures as well as his hemoglobin and hematocrit. I did order stools for occult blood. He may need a colonoscopy at some point. He has been changed from observation to inpatient. Will continue to monitor closely and follow as needed. #[id number] [facility]
[2019-11-10] MEDS: CEFEPIME 2 GM in SODIUM CHL 0.9% 50ML MIN-BAG+ 50 ML IVPB SCH ×2 (04:31→16:02)
[2019-11-10] MEDS: VANCOMYCIN HCL INJ 2,000 MG in SODIUM CHLORIDE 0.9% 500ML 500 ML IVPB SCH ×2 (05:07→17:05)
[2019-11-10] MEDS: PANTOPRAZOLE SODIUM IV 40 MG VIAL IV SCH (05:45)
[2019-11-10] MEDS: IPRATROPIUM/ALBUTEROL 3 ML VIAL NEB SCH ×4 (08:24→20:15)
[2019-11-10] MEDS: INSULIN LISPRO 100 UNITS/ML PEN SUBCU SCH ×4 (08:30→20:56)
[2019-11-10] MEDS: DOXAZOSIN MESYLATE 2 MG TAB PO SCH (09:29)
[2019-11-10] MEDS: POLYETHYLENE GLYCOL 3350 17 GM PCKT PO SCH (09:29)
[2019-11-10] MEDS: levETIRAcetam 250 MG TAB PO SCH ×2 (09:29→20:40)
[2019-11-10] MEDS: CALCITRIOL 0.25 MCG CAP PO SCH (09:29)
[2019-11-10] MEDS: PRAVASTATIN SODIUM 20 MG TAB PO SCH (09:29)
[2019-11-10] MEDS: VALPROIC ACID 250MG/5ML 60 ML BTTL PO SCH ×2 (09:30→20:40)
[2019-11-10] MEDS: ASPIRIN (CHEWABLE) 81 MG TAB PO SCH (09:30)
[2019-11-10] MEDS: ENOXAPARIN SODIUM 40 MG/0.4 ML SYG SUBCU SCH (09:30)
[2019-11-10] MEDS: amLODIPine BESYLATE 5 MG TAB PO SCH (09:30)
[2019-11-10] MEDS: BUMETANIDE TAB 2 MG TAB PO SCH (09:30)
[2019-11-10] MEDS: LACTOBACILLUS 1 TAB PO SCH (09:31)
[2019-11-10] MEDS: INSULIN DETEMIR 100 UNITS/ML PEN SUBCU SCH ×2 (09:31→20:56)
[2019-11-10] MEDS: SODIUM CHLORIDE 0.9% (FLUSH) 10 ML SYG IV SCH ×2 (09:43→20:40)
[2019-11-10] MEDS: IV SET AND CAP CHANGE INJ INJ SCH (09:44)
--- NOTE | 2019-11-10 11:19 | CT ---
EXAM DESCRIPTION: Chest w/o Contrast CLINICAL HISTORY: pna; hypoxia; COMPARISON: Chest radiograph November 09, 2019 TECHNIQUE: Chest CT was performed without IV contrast. This exam was performed according to our departmental dose-optimization program, which includes automated exposure control, adjustment of the mA and/or kV according to patient size and/or use of iterative reconstruction technique. FINDINGS: Questionable 1.4 cm round low-density nodule inferior pole left thyroid lobe which, based on its size and patient's age, requires no further follow-up. No thoracic aortic aneurysm. The main pulmonary artery is not dilated. Limited sensitivity for detection of adenopathy due to lack of IV contrast, but no mediastinal or hilar adenopathy is seen. No esophageal wall thickening or hiatal hernia. No pleural or pericardial effusion. The central airways are clear. The heart is enlarged. There are patchy areas of groundglass density in both lungs without additional airspace consolidation. No lung mass. Visualized portions of the upper abdomen are unremarkable for noncontrast technique. Sclerotic lesions in the left third through sixth ribs anteriorly suggests old healed or healing fractures. No acute fracture or pneumothorax. IMPRESSION: Cardiomegaly with patchy areas of groundglass density in both lungs suggestive of mild edema. Viral or other atypical infection should also be considered. Electronically signed by: De Child MD 11/10/2019 11:18 AM [facility]
[2019-11-10] MEDS ORDERED: CEFEPIME 2 GM VIAL ONE (16:01)
[2019-11-10] MEDS ORDERED: SODIUM CHL 0.9% 50ML MIN-BAG+ 50 ML IVPB ONE (16:01)
[2019-11-10] MEDS ORDERED: VANCOMYCIN HCL INJ 1,000 MG VIAL IVPB ONE (17:04)
[2019-11-10] MEDS ORDERED: SODIUM CHLORIDE 0.9% 500ML 500 ML ONE (17:04)
--- NOTE | 2019-11-10 20:35 | PN ---
DATE: 11/10/19 SUPERVISING PHYSICIAN: Say Damian M.D. SUBJECTIVE: The patient is lying in bed. He yells out for the nurses and then is confused as to why he has called out. He has no complaints, although he has a difficult time communicating with me or the nurses. Nursing has reported that there has been no seizure-like activity or lethargy. No shortness of breath. He continues to utilize the BiPAP as needed and mostly at night. OBJECTIVE: VITAL SIGNS: Temperature 98.1, heart rate 76, blood pressure 137/80, respiratory rate 20. It has gone as high as 28. O2 saturation is 97% on the BiPAP. It drops to the low 90s on nasal cannula. RESPIRATORY: Diminished breath sounds throughout with scattered rhonchi. CARDIAC: Regular rate and rhythm. GASTROINTESTINAL: Abdomen is soft, nondistended, non-tender. Bowel sounds are positive. NEUROLOGIC: He is awake and oriented to person only. LABORATORY: WBCs are 14,000 with hemoglobin 8, hematocrit 25.7. Electrolytes are within normal limits. Creatinine is slightly up at 1.48. Blood sugars have run between 105 and 184. Preliminary blood cultures show no growth after 3 days. Preliminary urine culture shows gram negative bacilli. Chest CT shows cardiomegaly with patchy areas of ground glass density in both lungs suggestive of mild edema. Viral or other atypical infection should be considered. All other labs and films have been reviewed via the EMR. ASSESSMENT: 1. Bilateral lower lobe pneumonia most likely healthcare acquired. He is a patient of [facility] and was recently extubated. His WBCs initially worsened in spite of dual antibiotic coverage. His antibiotic coverage was changed yesterday and his WBCs are still elevated but slightly improving. 2. Altered mental status with history of seizure disorder. He had a questionable seizure two nights ago but there has been no evidence since then. 3. Urinary tract infection. Preliminary cultures show gram positive bacilli. 4. Seizure disorder on Keppra and Depakote. 5. Chronic obstructive pulmonary disease with acute exacerbation. He was recently ventilator dependent. 6. Hypertension. 7. Diabetes mellitus, type 2, on insulin therapy. 8. History of congestive heart failure. He is on Lasix and a calcium channel yasmin. 9. Anemia, normochromic/normocytic in presentation that has worsened. PLAN: We will continue present supportive care. He will continue with Cefepime and vancomycin. Will await his urine culture and monitor his pneumonia status. I have ordered lab for tomorrow as well as a chest x-ray. We will continue with aggressive pulmonary hygiene and he will continue on the BiPAP, and most likely will need to go to [facility] on BiPAP. His hemoglobin will have to be watched closely as his hemoglobin was 8 today. Nurses said that he had a purulent discharge from his penis and that has been cultured. Hopefully he can be discharged tomorrow or the next day if his clinical improvement continues. Will continue to monitor closely and follow as needed. #[id number] [facility]
[2019-11-11] MEDS ORDERED: CEFEPIME 2 GM VIAL ONE ×2 (03:20→16:18)
[2019-11-11] MEDS ORDERED: SODIUM CHL 0.9% 50ML MIN-BAG+ 50 ML IVPB ONE ×2 (03:20→16:18)
[2019-11-11] MEDS ORDERED: VANCOMYCIN HCL INJ 1,000 MG VIAL IVPB ONE (03:20)
[2019-11-11] MEDS ORDERED: SODIUM CHLORIDE 0.9% 500ML 500 ML ONE (03:20)
[2019-11-11] MEDS: CEFEPIME 2 GM in SODIUM CHL 0.9% 50ML MIN-BAG+ 50 ML IVPB SCH ×2 (03:45→16:27)
[2019-11-11] MEDS: VANCOMYCIN HCL INJ 2,000 MG in SODIUM CHLORIDE 0.9% 500ML 500 ML IVPB SCH ×2 (04:32→17:51)
[2019-11-11] MEDS: PANTOPRAZOLE SODIUM IV 40 MG VIAL IV SCH (06:07)
[2019-11-11] MEDS: INSULIN LISPRO 100 UNITS/ML PEN SUBCU SCH ×4 (07:53→22:26)
--- NOTE | 2019-11-11 08:21 | RAD ---
EXAM: Chest,1 View HISTORY: Pneumonia COMPARISON: CT chest 11/10/2019 Chest one view 11/09/2019 TECHNIQUE: Chest one view portable AP upright FINDINGS: Moderate decreased inspiration (decreased lung volumes) makes evaluation more difficult and may accentuate heart size and pulmonary vascularity. Heart size appears mildly enlarged and may be partly due to portable AP technique and decreased inspiration. Mild diffuse bilateral lung haziness. No significant pleural effusion or pneumothorax. Mild leftward convex curvature of thoracic spine may be positional or represent levoscoliosis. IMPRESSION: 1. Heart size appears mildly enlarged and may be partly due to portable AP technique and decreased inspiration. 2. Mild diffuse bilateral lung haziness. This may be artifactual related to decreased inspiration or represent mild airspace pulmonary edema or subsegmental atelectasis. Electronically signed by: Major Ortiz MD 11/11/2019 8:20 AM CLINICAL RESEARCH ASSOCIATE
[2019-11-11] MEDS: IPRATROPIUM/ALBUTEROL 3 ML VIAL NEB SCH ×4 (08:40→20:55)
[2019-11-11] MEDS: PRAVASTATIN SODIUM 20 MG TAB PO SCH (08:42)
[2019-11-11] MEDS: ENOXAPARIN SODIUM 40 MG/0.4 ML SYG SUBCU SCH (08:42)
[2019-11-11] MEDS: DOXAZOSIN MESYLATE 2 MG TAB PO SCH (08:42)
[2019-11-11] MEDS: levETIRAcetam 250 MG TAB PO SCH ×2 (08:42→19:59)
[2019-11-11] MEDS: ASPIRIN (CHEWABLE) 81 MG TAB PO SCH (08:43)
[2019-11-11] MEDS: amLODIPine BESYLATE 5 MG TAB PO SCH (08:43)
[2019-11-11] MEDS: CALCITRIOL 0.25 MCG CAP PO SCH (08:43)
[2019-11-11] MEDS: BUMETANIDE TAB 2 MG TAB PO SCH (08:43)
[2019-11-11] MEDS: SODIUM CHLORIDE 0.9% (FLUSH) 10 ML SYG IV SCH ×2 (08:44→20:06)
[2019-11-11] MEDS: INSULIN DETEMIR 100 UNITS/ML PEN SUBCU SCH ×2 (08:44→22:26)
[2019-11-11] MEDS: LACTOBACILLUS 1 TAB PO SCH (08:45)
[2019-11-11] MEDS: POLYETHYLENE GLYCOL 3350 17 GM PCKT PO SCH (08:45)
[2019-11-11] MEDS: VALPROIC ACID 250MG/5ML 60 ML BTTL PO SCH ×2 (08:45→20:51)
[2019-11-11] MEDS: guaiFENesin ER TAB 600 MG TAB PO SCH ×2 (14:33→19:59)
[2019-11-11] MEDS ORDERED: FUROSEMIDE INJ 40 MG/4 ML VIAL IV ONE (17:00)
--- NOTE | 2019-11-11 20:51 | PN ---
DATE: 11/11/19 SUPERVISING PHYSICIAN: Say Damian M.D. SUBJECTIVE: The patient is lying in bed. He is awake. He is alert. He is yelling for the nurses. He is refusing most of his respiratory treatments. We discussed at length that he had to get his breathing treatments and pulmonary hygiene so he could be discharged. He did not agree to anything but he did deny any shortness of breath or chest pain, nausea, vomiting or diarrhea. OBJECTIVE: VITAL SIGNS: Temperature 98.3, heart rate 78, blood pressure 132/81, respiratory rate 22, O2 saturation 98% on 2 liters nasal cannula. RESPIRATORY: Diminished breath sounds throughout with scattered rhonchi. He has poor inspiratory effort. He does get tachypneic at times. CARDIAC: Regular rate and rhythm. GASTROINTESTINAL: Abdomen is soft, nondistended, non-tender. Bowel sounds are positive. NEUROLOGIC: He is awake and alert. He is oriented to person only. Does not follow directions well. LABORATORY: WBCs are 14,300 with hemoglobin 8.1, hematocrit 25.6. Blood sugars have run between 91 and 169. Electrolytes are within normal limits. Creatinine did go up slightly to 1.6. Stool for occult blood is negative. Genital culture is pending. Preliminary blood cultures show no growth after 4 days. Chest x-ray shows: 1. Heart size appeared mildly enlarged. May be partly due to portable AP technique and decreased inspiration. 2. Mild diffuse bilateral lung haziness. This may be artifactual related to decreased inspiration or represent mild airspace pulmonary edema or subsegmental atelectasis. All other labs and films have been reviewed via the EMR. ASSESSMENT: 1. Bilateral lower lobe pneumonia most likely healthcare acquired. He is a patient of [facility] and was recently extubated. His WBCs initially worsened in spite of dual antibiotic coverage. His antibiotic coverage was changed yesterday and his WBCs are still elevated but slightly improving. 2. Altered mental status with history of seizure disorder. He had a questionable seizure two nights ago but there has been no evidence since then. 3. Urinary tract infection. Preliminary cultures show gram positive bacilli. 4. Seizure disorder on Keppra and Depakote. 5. Chronic obstructive pulmonary disease with acute exacerbation. He was recently ventilator dependent. 6. Hypertension. 7. Diabetes mellitus, type 2, on insulin therapy. 8. History of congestive heart failure. He is on Lasix and a calcium channel yasmin. 9. Anemia, normochromic/normocytic in presentation that has worsened. PLAN: We will continue present supportive care. He will continue with the Cefepime and vancomycin. He has refused most of his pulmonary hygiene and I have encouraged him to not do that. Because he has an atypical pneumonia most likely healthcare acquired and was recently on ventilator, I will continue him on his vancomycin and Cefepime. Maybe Dr. Katz with Infectious Diseases could be contacted for recommendations of continued antibiotic therapy and he may have to go to [facility] on a BiPAP machine. I have also given him an extra dose of Lasix as well as increased his pulmonary hygiene and given him some scheduled Mucinex. He has not had any steroids and I hesitate to give him any at this time as he has no wheezing, but that may be a consideration at some point. I have ordered lab for in the morning. Hopefully he can be discharged back to [facility] in the next day or so with continued antibiotic therapy. #[id number] [facility]
[2019-11-12] MEDS ORDERED: SODIUM CHL 0.9% 50ML MIN-BAG+ 50 ML IVPB ONE (03:35)
[2019-11-12] MEDS ORDERED: CEFEPIME 2 GM VIAL ONE (03:36)
[2019-11-12] MEDS: CEFEPIME 2 GM in SODIUM CHL 0.9% 50ML MIN-BAG+ 50 ML IVPB SCH (03:47)
[2019-11-12] MEDS: VANCOMYCIN HCL INJ 2,000 MG in SODIUM CHLORIDE 0.9% 500ML 500 ML IVPB SCH (03:57)
[2019-11-12] MEDS: PANTOPRAZOLE SODIUM IV 40 MG VIAL IV SCH (06:00)
[2019-11-12] MEDS: INSULIN LISPRO 100 UNITS/ML PEN SUBCU SCH ×2 (07:19→11:39)
[2019-11-12] MEDS: ENOXAPARIN SODIUM 40 MG/0.4 ML SYG SUBCU SCH (07:53)
[2019-11-12] MEDS: guaiFENesin ER TAB 600 MG TAB PO SCH (07:53)
[2019-11-12] MEDS: DOXAZOSIN MESYLATE 2 MG TAB PO SCH (07:53)
[2019-11-12] MEDS: PRAVASTATIN SODIUM 20 MG TAB PO SCH (07:53)
[2019-11-12] MEDS: levETIRAcetam 250 MG TAB PO SCH (07:53)
[2019-11-12] MEDS: BUMETANIDE TAB 2 MG TAB PO SCH (07:53)
[2019-11-12] MEDS: CALCITRIOL 0.25 MCG CAP PO SCH (07:54)
[2019-11-12] MEDS: ASPIRIN (CHEWABLE) 81 MG TAB PO SCH (07:54)
[2019-11-12] MEDS: LACTOBACILLUS 1 TAB PO SCH (07:54)
[2019-11-12] MEDS: amLODIPine BESYLATE 5 MG TAB PO SCH (07:54)
[2019-11-12] MEDS: VALPROIC ACID 250MG/5ML 60 ML BTTL PO SCH (07:54)
[2019-11-12] MEDS: INSULIN DETEMIR 100 UNITS/ML PEN SUBCU SCH (07:55)
[2019-11-12] MEDS: IPRATROPIUM/ALBUTEROL 3 ML VIAL NEB SCH ×2 (08:32→12:50)
[2019-11-12 10:17] VITALS: BP 125/88; TEMP 97.4
[2019-11-12] MEDS: SODIUM CHLORIDE 0.9% (FLUSH) 10 ML SYG IV SCH (11:38)
[2019-11-12] MEDS: POLYETHYLENE GLYCOL 3350 17 GM PCKT PO SCH (11:41)
[2019-11-12 14:46] VITALS: O2SAT 95
--- NOTE | 2019-11-26 08:30 | DS ---
SUPERVISING PHYSICIAN: Ronak Fink MD ADMISSION DIAGNOSIS: 1. Altered mental status with history of seizure disorder. There has been no evidence of seizure since coming to the hospital. 2. Urinary tract infection with cultures pending. 3. Seizure disorder on Keppra and Depakote. His Keppra level was not done and he was given 500 mg of Keppra in ER. He did have a subtherapeutic Depakote level and only receives 250 mg at bedtime. 4. Chronic obstructive pulmonary disease with no signs or symptoms of an exacerbation. He was recently ventilator dependent. 5. Hypertension. 6. Diabetes mellitus, type 2, presently on insulin therapy. 7. Congestive heart failure of unknown etiology. He is on Lasix and a calcium channel yasmin. DISCHARGE DIAGNOSIS: 1. Heart size appeared mildly enlarged. May be partly due to portable AP technique and decreased inspiration. 2. Mild diffuse bilateral lung haziness. This may be artifactual related to decreased inspiration or represent mild airspace pulmonary edema or subsegmental atelectasis. REASON FOR HOSPITALIZATION: This is a 49-year-old male patient who resides at [facility]. He has recently been on a ventilator and had a feeding tube. He also has mental retardation and it is difficult to get a history from him. He has been off the ventilator for an unknown amount of time and his G- tube was removed in the last several days. Yesterday at the assisted, he had an oxygen saturation reported to be less than 50%. He was "out of it." He had received no pain medications or anxiety medications yesterday and due to his mental status changes and his history of seizure disorder, he was sent to the Emergency Room. In the Emergency Room, his vital signs were temperature 97.8, heart rate 93, blood pressure 120/72, respiratory rate 24, O2 saturation 93% on 2 liters nasal cannula. Lab was obtained and WBC was 12.7, hemoglobin 9.6, hematocrit 30.7. His chemistries were basically within normal limits with a slightly elevated BUN 22. Glucose 185. Albumin slightly low at 2.7. He did have a significant urinary tract infection with urine pH of 8, urine protein of greater than 300, a small amount of urine blood, a large amount of urine leukocyte esterase, 3 to 5 urine RBCs, greater than 50 urine WBCs and 3+ urine bacteria. He is on Depakote and Keppra and his valproic acid was less than 0.1. His Keppra level was not done. Urine culture is pending. Blood cultures are pending. He was given 500 mg of Depakote in the Emergency Room as well as some fluids. He was also started on ceftriaxone and the patient was placed in observation in the hospital. HOSPITAL COURSE: Mr. Bravo was admitted for bilateral lower lobe pneumonia, hospital acquired. He was treated with dual antibiotic coverage with cefepime and vancomycin. He did well on BiPAP and was actually able to titrate off to high-flow oxygen. It was felt he had show clinical improvement enough to continue with outpatient management at the skilled unit where he resided at [facility]. He was also to continue his antibiotic coverage and management him on a BiPAP set-up. PLAN: Mr. Bravo was discharged back to [facility] on 11/12/19 to continue antibiotic coverage with cefepime and vancomycin for an additional 8 days. They were to hold his vancomycin until they elizabeth a trough on 11/13/19 and then the pharmacy was to derive the dosing per institutional protocol. All other medications and orders were to resume as prior to hospitalization. Diet was to resume usual diet. Activity to resume usual activity as per physical therapy. MEDICATIONS AT DISCHARGE: 1. Cefepime 2 grams q.12h. for 8 days. 2. Vancomycin per pharmacy protocol. All other medications as per medical administration record. CONDITION ON DISCHARGE: Stable and improved. DISPOSITION: The patient is discharged back to [facility]. #[id number] MTDD
== END 2019-11-12 14:10 | disposition home or self-care (01) | DRG 194 ==
LOC: ER 01:21 → MS 04:33 → OBSVTOIN 11-09 11:56
PROVIDERS: ADMIT Nurse Practitioner Acute Care; ATTEND Nurse Practitioner Family
DX: J18.9 Pneumonia, unspecified organism (principal); N39.0 Urinary tract infection, site not specified; J44.0 Chronic obstructive pulmonary disease with (acute) lower respiratory infection; I11.0 Hypertensive heart disease with heart failure; I50.9 Heart failure, unspecified; E11.9 Type 2 diabetes mellitus without complications; E66.9 Obesity, unspecified; G40.909 Epilepsy, unspecified, not intractable, without status epilepticus; D64.9 Anemia, unspecified; F17.210 Nicotine dependence, cigarettes, uncomplicated; Y95 Nosocomial condition; Z79.4 Long term (current) use of insulin; Z66 Do not resuscitate; Z79.82 Long term (current) use of aspirin; Z79.899 Other long term (current) drug therapy

== ENCOUNTER 2019-11-13 16:05 | Emergency (ER) | payer OTHER ==
[2019-11-13] MEDS ORDERED: IPRATROPIUM/ALBUTEROL 3 ML VIAL NEB ONE ×2 (16:26→18:44)
--- NOTE | 2019-11-13 16:32 | ED.PDOC ---
History of Present Illness - General Chief Complaint: Respiratory Problem Stated Complaint: s/p seizure,resp distress Time Seen by Provider: 11/13/19 16:09 Source: EMS Exam Limitations: no limitations - History of Present Illness Initial Comments: 49 yo M with PMH sig for MR, COPD, CHF, seizures who presents for seizure with noted hypoxia and postictal state afterwards per EMS. They report NH was concerned and therefore called EMS. EMS noted course/wheezing breath sounds and gave a duoneb. Otherwise history limited 2/2 post ictal state. On chart review pt was d/c from the hospital yesterday after stay for UTI, seizures occurred during stay, sent home on vanc (to be re-started today after trough) and cefepime, EMS stated possibly for pneumonia. Pt has urinary catheter in place. He is a full DNR. Recently had trach and peg removed. Allergies/Adverse Reactions: Allergies NO KNOWN ALLERGY Allergy (Verified 08/20/19 02:20) Home Medications: Ambulatory Orders RX: Doxazosin Mesylate 4 mg PO DAILY 08/20/19 RX: Pravastatin Sodium 80 mg PO DAILY 08/20/19 RX: Acetaminophen [Pain Relief] 650 mg PO Q6HR PRN 11/07/19 RX: Amlodipine Besylate 10 mg PO DAILY 11/07/19 RX: Aspirin [Aspirin Childrens] 81 mg PO DAILY 11/07/19 RX: Bumetanide 1 mg PO DAILY 11/07/19 RX: Calcitriol 0.25 mcg PO DAILY 11/07/19 RX: Enoxaparin Sodium [Lovenox] 40 mg SUBCU QD 11/07/19 RX: Esomeprazole Magnesium [Nexium] 40 mg PO DAILY 11/07/19 RX: Fluticasone Propionate (Nasal) [Allergy Nasal [place] 24 Ho] 50 mcg JOSEPH DAILY 11/07/19 RX: Insulin Aspart [Novolog Flexpen] See Protocol SC ACHS PRN 11/07/19 RX: Insulin Detemir [Levemir] 30 units SUBCU BID 11/07/19 RX: Ipratropium-Albuterol [Ipratropium [place]/Albut 0.5-2.5 (3) mg/3Ml] 1 dose NEB Q6HR 11/07/19 RX: Lactobacillus [Acidophilus Lactobacilli] 1 cap PO DAILY 11/07/19 RX: Levetiracetam 1,000 mg PO Q12HR 11/07/19 RX: Nystatin (Topical) [Nystop] 1 TOP DAILY 11/07/19 RX: Polyethylene Glycol 3350 [Miralax] 17 gm PO DAILY 11/07/19 RX: Polyethylene Glycol 3350 [Miralax] 17 gm PO DAILY PRN 11/07/19 RX: SILVER SULFADIAZINE 1 % 25gm [Silvadene Cream 25gm] 0 gm TOP DAILY 11/07/19 RX: Valproic Acid Syrup [Depakene Syrup] 250 mg PO DAILY 11/07/19 RX: Cefepime [Maxipime] 2 gm IVPB Q12H 8 Days vial 11/12/19 RX: Vancomycin Per Pharmacy 1 ea INJ ONCE 8 Days each 11/12/19 Review of Systems - Review of Systems Unable to Obtain Due To: other - AMS Past Medical History (General) - Patient Medical History Hx Seizures: Yes Hx Asthma: Yes Hx of COPD: Yes Hx Cardiac Disorders: Yes Hx Congestive Heart Failure: Yes Hx Hypertension: Yes Hx Diabetes: Yes Hx Gastroesophageal Reflux: No Hx Renal Disease: Yes - Vaccination History Hx Tetanus, Diphtheria Vaccination: No Hx Influenza Vaccination: No Hx Pneumococcal Vaccination: No - Activities of Daily Living [facility] (if applicable):: [facility] Family Medical History - Family History Mother Family History: Unknown Living Status: Unknown Hx Family;Other: unknown - per pt both parents are living - poor historian Physical Exam - Physical Exam General Appearance: Obese, Other - post ictal Eye Exam: bilateral normal Ears, Nose, Throat: normal ENT inspection Neck: full range of motion, supple Respiratory: no respiratory distress, no accessory muscle use, other - coarse BS bilaterally, intermittent wheeze, duoneb being given Cardiovascular/Chest: normal peripheral pulses, regular rate, rhythm, no gallop, no JVD, no murmur Peripheral Pulses: radial,right: 2+, radial,left: 2+ Gastrointestinal/Abdominal: non tender, soft, no organomegaly, no pulsatile mass Extremity: non-tender, normal capillary refill, pedal edema - trace, symmetric BLE Neurologic: other - post ictal, not following commands, will open eyes to his name and then go back to sleep Skin Exam: normal color, warm/dry Progress - Progress Progress: Pt was postictal for a good portion of his stay in the ED. Lasix given for possible volume overload on CXR, subsequent CTA without edema or infection. Suboptimal for PE study. Eventually pt became at neuro baseline, loud and disruptive in ER, states he was ready to be d/c, he felt back to normal, denies any sx/pain/injury. CTAB, saturating well on RA. I have explained and reviewed all results with the pt. I explained that emergent conditions may arise and to return to the ER for new, worsening, or any persistent conditions. I've explained the importance of f/u for recheck. All questions and concerns addressed at this time. Pt understands and agrees with plan. Pt well appearing, NAD, is stable for discharge. Bailey Hinkle MD Emergency Medicine Physician Billing Number [id number] - Results/Orders Results/Orders: Laboratory Results - last 24 hr 11/13/19 11/13/19 11/13/19 16:40 16:52 16:52 WBC 16.4 H RBC 3.08 L Hgb 8.7 L Hct 27.1 L MCV 88.0 MCH 28.3 MCHC 32.2 L RDW 14.8 H Plt Count 346 MPV 7.0 L Absolute Neuts (auto) 13.90 H Absolute Lymphs (auto) 1.00 Absolute Monos (auto) 0.90 H Absolute Eos (auto) 0.60 H Absolute Basos (auto) 0.00 Neutrophils % 84.8 H Lymphocytes % 5.9 L Monocytes % 5.3 Eosinophils % 3.9 Basophils % 0.1 pCO2 pO2 HCO3 ABG pH ABG O2 Saturation ABG Base Excess ABG Deoxyhemoglobin Oxyhemoglobin % Carboxyhemoglobin % Methemoglobin % Sat Calc Total Hemoglobin Sodium 142 Potassium 4.2 Chloride 100 L Carbon Dioxide 32 H Anion Gap 14.2 BUN 27 H Creatinine 1.63 H BUN/Creatinine Ratio 16.6 Random Glucose 180 H D Serum Osmolality 292.8 Calcium 9.2 Total Bilirubin 0.4 AST 13 ALT 10 Alkaline Phosphatase 59 Troponin I B-Natriuretic Peptide Serum Total Protein 7.1 Albumin 2.7 L Globulin 4.4 H Albumin/Globulin Ratio 0.6 L Urine Color Yellow Urine Appearance Cloudy Urine pH 5.0 Ur Specific [place] >= 1.030 Urine Protein >=300 H Urine Glucose (UA) Negative Urine Ketones Trace Urine Blood Moderate H Urine Nitrite Negative Urine Bilirubin Negative Urine Urobilinogen 0.2 Ur Leukocyte Esterase Small H Urine RBC 10-20 H Urine WBC 20-30 H Ur Epithelial Cells 1-3 Amorphous Sediment 4+ Urine Bacteria 2+ H Valproic Acid 11/13/19 11/13/19 11/13/19 16:52 18:56 18:56 WBC RBC Hgb Hct MCV MCH MCHC RDW Plt Count MPV Absolute Neuts (auto) Absolute Lymphs (auto) Absolute Monos (auto) Absolute Eos (auto) Absolute Basos (auto) Neutrophils % Lymphocytes % Monocytes % Eosinophils % Basophils % pCO2 40 pO2 171 H* HCO3 29.8 ABG pH 7.490 H ABG O2 Saturation 99.8 H ABG Base Excess 6.3 ABG Deoxyhemoglobin 0.2 Oxyhemoglobin % 98.3 H Carboxyhemoglobin % 0.6 Methemoglobin % Sat 0.9 Calc Total Hemoglobin 9.0 L Sodium Potassium Chloride Carbon Dioxide Anion Gap BUN Creatinine BUN/Creatinine Ratio Random Glucose Serum Osmolality Calcium Total Bilirubin AST ALT Alkaline Phosphatase Troponin I B-Natriuretic Peptide 486.0 H* Serum Total Protein Albumin Globulin Albumin/Globulin Ratio Urine Color Urine Appearance Urine pH Ur Specific [place] Urine Protein Urine Glucose (UA) Urine Ketones Urine Blood Urine Nitrite Urine Bilirubin Urine Urobilinogen Ur Leukocyte Esterase Urine RBC Urine WBC Ur Epithelial Cells Amorphous Sediment Urine Bacteria Valproic Acid 34.6 L 11/13/19 19:04 WBC RBC Hgb Hct MCV MCH MCHC RDW Plt Count MPV Absolute Neuts (auto) Absolute Lymphs (auto) Absolute Monos (auto) Absolute Eos (auto) Absolute Basos (auto) Neutrophils % Lymphocytes % Monocytes % Eosinophils % Basophils % pCO2 pO2 HCO3 ABG pH ABG O2 Saturation ABG Base Excess ABG Deoxyhemoglobin Oxyhemoglobin % Carboxyhemoglobin % Methemoglobin % Sat Calc Total Hemoglobin Sodium Potassium Chloride Carbon Dioxide Anion Gap BUN Creatinine BUN/Creatinine Ratio Random Glucose Serum Osmolality Calcium Total Bilirubin AST ALT Alkaline Phosphatase Troponin I 0.02 B-Natriuretic Peptide Serum Total Protein Albumin Globulin Albumin/Globulin Ratio Urine Color Urine Appearance Urine pH Ur Specific [place] Urine Protein Urine Glucose (UA) Urine Ketones Urine Blood Urine Nitrite Urine Bilirubin Urine Urobilinogen Ur Leukocyte Esterase Urine RBC Urine WBC Ur Epithelial Cells Amorphous Sediment Urine Bacteria Valproic Acid CXR: EXAM DESCRIPTION: Chest x-ray,1 View CLINICAL HISTORY: 49 years Male, cough COMPARISON: Previous study November 11, 2019 TECHNIQUE: AP portable chest. FINDINGS: Heart size is large with increased pulmonary vascularity. Pulmonary edema is present consistent with volume overload or congestive failure No consolidating infiltrate. Right hemidiaphragm is elevated. No pulmonary mass or worrisome nodule. No pneumothorax or pleural effusion. Bones are unremarkable. IMPRESSION: Large heart with increased vascularity and pulmonary edema consistent with volume overload or congestive failure. Electronically signed by: Freeman Mir MD 11/13/2019 5:00 PM [facility] CTA Chest: PROCEDURE: CTA Chest CLINICAL HISTORY: 49 years Male hypoxia TECHNIQUE: Contiguous axial images obtained through the chest were obtained from the thoracic inlet to the level of the upper abdomen during the rapid administration of intravenous contrast administration. Coronal and sagittal reformatted and oblique coronal MIP images provided. This CT exam was performed according to our departmental dose-optimization program, which includes one or more of the following dose reduction techniques: automated exposure control, adjustment of the mA and/or kV according to patient size, and/or use of iterative reconstruction technique. COMPARISON: 11/10/2019 FINDINGS: Cannot evaluate for pulmonary emboli due to suboptimal contrast opacification of the pulmonary arteries and extensive patient motion. Stable moderate cardiomegaly without pericardial effusion. No thoracic aortic aneurysm or dissection. Aside from minimal dependent atelectasis, the lungs are clear without consolidation, effusion, or pneumothorax. Shotty nonspecific mediastinal lymph nodes again seen. There are no visualized acute osseous or upper abdominal abnormalities. IMPRESSION: The examination is nondiagnostic for pulmonary emboli due to suboptimal contrast opacification and extensive patient motion. No visualized acute cardiopulmonary findings. Moderate cardiomegaly without congestive failure. Electronically signed by: Molly Argueta MD 11/13/2019 8:06 PM [facility] Vital Signs - 24 hr 11/13/19 11/13/19 11/13/19 16:21 16:30 17:10 Temperature 97.6 F Pulse Rate 86 Pulse Rate [ 88 Left Brachial] Respiratory 24 19 24 Rate Blood Pressure 101/52 [Left Arm] O2 Sat by Pulse 96 97 Oximetry 11/13/19 11/13/19 11/13/19 17:32 18:12 18:48 Temperature Pulse Rate 87 Pulse Rate [ 87 84 Left Brachial] Respiratory 20 20 20 Rate Blood Pressure 126/82 121/75 [Left Arm] O2 Sat by Pulse 96 95 97 Oximetry 11/13/19 11/13/1911/13/19 19:09 20:00 20:57 Temperature 98.6 F 98.6 F Pulse Rate Pulse Rate [ 89 88 88 Left Brachial] Respiratory 20 20 20 Rate Blood Pressure 142/81 138/74 138/74 [Left Arm] O2 Sat by Pulse 95 99 99 Oximetry - EKG/XRAY/CT EKG: Sinus, no ST T wave changes Comments: Low voltage Departure - Departure Clinical Impression: Seizure Time of Disposition: 20:16 Disposition: Discharge to [facility] Concerns: condition: stable Departure Forms: ED Discharge - Pt. Copy, Patient Portal Self Enrollment Referrals: JUAN MEZA [Primary Care Provider] - 1-2 Days Home Medications: Ambulatory Orders RX: Doxazosin Mesylate 4 mg PO DAILY 08/20/19 RX: Pravastatin Sodium 80 mg PO DAILY 08/20/19 RX: Acetaminophen [Pain Relief] 650 mg PO Q6HR PRN 11/07/19 RX: Amlodipine Besylate 10 mg PO DAILY 11/07/19 RX: Aspirin [Aspirin Childrens] 81 mg PO DAILY 11/07/19 RX: Bumetanide 1 mg PO DAILY 11/07/19 RX: Calcitriol 0.25 mcg PO DAILY 11/07/19 RX: Enoxaparin Sodium [Lovenox] 40 mg SUBCU QD 11/07/19 RX: Esomeprazole Magnesium [Nexium] 40 mg PO DAILY 11/07/19 RX: Fluticasone Propionate (Nasal) [Allergy Nasal [place] 24 Ho] 50 mcg JOSEPH DAILY 11/07/19 RX: Insulin Aspart [Novolog Flexpen] See Protocol SC ACHS PRN 11/07/19 RX: Insulin Detemir [Levemir] 30 units SUBCU BID 11/07/19 RX: Ipratropium-Albuterol [Ipratropium [place]/Albut 0.5-2.5 (3) mg/3Ml] 1 dose NEB Q6HR 11/07/19 RX: Lactobacillus [Acidophilus Lactobacilli] 1 cap PO DAILY 11/07/19 RX: Levetiracetam 1,000 mg PO Q12HR 11/07/19 RX: Nystatin (Topical) [Nystop] 1 TOP DAILY 11/07/19 RX: Polyethylene Glycol 3350 [Miralax] 17 gm PO DAILY 11/07/19 RX: Polyethylene Glycol 3350 [Miralax] 17 gm PO DAILY PRN 11/07/19 RX: SILVER SULFADIAZINE 1 % 25gm [Silvadene Cream 25gm] 0 gm TOP DAILY 11/07/19 RX: Valproic Acid Syrup [Depakene Syrup] 250 mg PO DAILY 11/07/19 RX: Cefepime [Maxipime] 2 gm IVPB Q12H 8 Days vial 11/12/19 RX: Vancomycin Per Pharmacy 1 ea INJ ONCE 8 Days each 11/12/19 Comments: Follow up: [facility] As needed, if symptoms worsen
--- NOTE | 2019-11-13 17:02 | RAD ---
EXAM DESCRIPTION: Chest x-ray,1 View CLINICAL HISTORY: 49 years Male, cough COMPARISON: Previous study November 11, 2019 TECHNIQUE: AP portable chest. FINDINGS: Heart size is large with increased pulmonary vascularity. Pulmonary edema is present consistent with volume overload or congestive failure No consolidating infiltrate. Right hemidiaphragm is elevated. No pulmonary mass or worrisome nodule. No pneumothorax or pleural effusion. Bones are unremarkable. IMPRESSION: Large heart with increased vascularity and pulmonary edema consistent with volume overload or congestive failure. Electronically signed by: Freeman Mir MD 11/13/2019 5:00 PM [facility]
[2019-11-13] MEDS ORDERED: FUROSEMIDE INJ 20 MG/2 ML VIAL IV ONE (18:37)
--- NOTE | 2019-11-13 20:07 | CT ---
PROCEDURE: CTA Chest CLINICAL HISTORY: 49 years Male hypoxia TECHNIQUE: Contiguous axial images obtained through the chest were obtained from the thoracic inlet to the level of the upper abdomen during the rapid administration of intravenous contrast administration. Coronal and sagittal reformatted and oblique coronal MIP images provided. This CT exam was performed according to our departmental dose-optimization program, which includes one or more of the following dose reduction techniques: automated exposure control, adjustment of the mA and/or kV according to patient size, and/or use of iterative reconstruction technique. COMPARISON: 11/10/2019 FINDINGS: Cannot evaluate for pulmonary emboli due to suboptimal contrast opacification of the pulmonary arteries and extensive patient motion. Stable moderate cardiomegaly without pericardial effusion. No thoracic aortic aneurysm or dissection. Aside from minimal dependent atelectasis, the lungs are clear without consolidation, effusion, or pneumothorax. Shotty nonspecific mediastinal lymph nodes again seen. There are no visualized acute osseous or upper abdominal abnormalities. IMPRESSION: The examination is nondiagnostic for pulmonary emboli due to suboptimal contrast opacification and extensive patient motion. No visualized acute cardiopulmonary findings. Moderate cardiomegaly without congestive failure. Electronically signed by: Molly Argueta MD 11/13/2019 8:06 PM [facility] [employer] [facility]
[2019-11-13 20:54] VITALS: BP 138/74; TEMP 98.6; O2SAT 99
== END 2019-11-13 20:59 ==
LOC: ER 16:05
DX: R56.9 Unspecified convulsions (principal); J44.9 Chronic obstructive pulmonary disease, unspecified; I50.9 Heart failure, unspecified; I51.9 Heart disease, unspecified; E11.22 Type 2 diabetes mellitus with diabetic chronic kidney disease; N18.9 Chronic kidney disease, unspecified; I13.0 Hypertensive heart and chronic kidney disease with heart failure and stage 1 through stage 4 chronic kidney disease, or unspecified chronic kidney disease; F79 Unspecified intellectual disabilities; Z79.899 Other long term (current) drug therapy; Z79.4 Long term (current) use of insulin; Z66 Do not resuscitate; Z87.440 Personal history of urinary (tract) infections; Z79.82 Long term (current) use of aspirin
CPT/HCPCS: 36600; 71045; 71275; 80053; 80164; 80177; 81001; 82803; 82805; 83880; 84484; 85025; 87086; 93005; 94640; J1940; J7620